=== PATIENT | male | born 1995 | race Caucasian/White ===

== ENCOUNTER 2017-04-16 20:26 | Emergency (ER) | payer OTHER ==
--- NOTE | ~2017-04-16 | ER ---
PATIENT'S NAME: TOVA BURGOS [facility] AGE: 22 Y [address] ROOM: [place] [address] LOCATION: ED ADMIT DATE: 04/16/2017 ER/Outpatient Report DISCHARGE DATE: 04/16/2017 FAMILY PHYSICIAN: PHYSICIAN, NO ATTENDING PHYSICIAN: Johnny Paez Time of Arrival: 2035 hours. Time of Exam: 5 hours. CHIEF COMPLAINT: Suture removal. HISTORY OF PRESENT ILLNESS: The patient states that he got cut on the left side of his nose, facial cheek approximately 8 days ago, was sutured in [place], [place] ER. He was scheduled to have the stitches removed, he tried to remove them on his own, was unable, has 3 stitches left that he is unable to get. He is here to have them removed. He has not had a fever. He has not had any open skin in that area. ALLERGIES: PENICILLIN. MEDICATIONS: None. PAST MEDICAL HISTORY: Benign. PAST SURGERIES: Negative. SOCIAL HISTORY: Denies use of drugs, tobacco, or alcohol. REVIEW OF SYSTEMS: All negative other than those mentioned in the HPI. PHYSICAL EXAMINATION: VITAL SIGNS: He weighs 66 kg, blood pressure is 184/67, pulse is 61, respirations 16, temperature of 98.1, and O2 saturation was 98% on room air. GENERAL: He is awake, alert, and oriented x4. SKIN: [place], warm, and dry. RESPIRATIONS: Even and nonlabored. EMERGENCY ROOM COURSE: PATIENT'S NAME: TOVA BURGOS [facility] AGE: 22 Y [address] ROOM: [place] [address] LOCATION: ED ADMIT DATE: 04/16/2017 ER/Outpatient Report DISCHARGE DATE: 04/16/2017 FAMILY PHYSICIAN: PHYSICIAN, NO ATTENDING PHYSICIAN: Johnny Paez The patient has a well-approximated lacerated area of the left side of his nose into his left cheek. Three stitches are noted, they were removed without incident. The patient tolerated it well. IMPRESSION: Suture removal. PLAN: Home. Rest. Keep the area clean and dry. Follow up with his primary provider in 2 to 3 days as needed. He verbalized understanding. LAYA COVINGTON MD DJ/zulma /[id number] d: 04/17/17 0116 t: 04/22/17 1113, OUTPATIENT REPORT
== END 2017-04-16 20:45 | disposition disaster alternative care site (69) ==
LOC: GMED 20:26
DX: Z48.02 Encounter for removal of sutures (principal); Z88.0 Allergy status to penicillin